=== PATIENT | male | born 1965 | race Caucasian/White ===

== ENCOUNTER 2020-03-06 18:38 | Observation (INO) | payer BC, SELFPAY ==
[2020-03-06 18:39] VITALS: BP 137/114; PULSE 115; RESP 16; TEMP 39.1; O2SAT 97; BMI 21.3
[2020-03-06 18:42] VITALS: BP 137/114; PULSE 117; RESP 16; TEMP 39.1; O2SAT 97
--- NOTE | 2020-03-06 19:12 | ED.VISSUMM ---
- ER Visit Summary Date of Service: 03/06/20 Chief Complaint: [Fever] History of Present Illness: The patient is a 54 M [presents to the emergency department complaint of a fever for the last 4 to 5 days. Patient has had minimal cough that is nonproductive. He denies urinary symptoms. He denies rashes. He does describe a headache. Patient does complain of body aches. Patient denies any sick contacts. He denies any exposures to COVID-19. He does describe a upset stomach. Significant pain in his abdomen. Patient states he has no medical history but really does not go to the doctor.] Physical Examination: [HEENT-PERRLA, EOMI. Cranial nerves II through XII grossly intact. TMs clear. Mucous membranes moist. No adenopathy. Patient diaphoretic on exam. Cardiovascular-regular and tachycardic. No murmurs auscultated. Lungs-clear to auscultation, chest wall stable without crepitus or subcu emphysema Abdomen-normoactive bowel sounds, soft, nontender, no rebound or rigidity, no peritoneal signs. Extremities-intact ?4, normal range of motion, normal pulses, atraumatic] Test Results: [CBC with differential obtained showing a 7.3, hemoglobin 13.7, hematocrit 40, placed 218. Chemistries unremarkable. LFTs were normal. Urinalysis was normal. Lactate was 0.9. Influenza was negative. Covid rapid was negative and Covid PCR was negative. Chest x-ray interpreted by myself as increased markings in bilateral upper lobes. Radiology read it as bilateral upper lobe nodular infiltrates. CT scan of the abdomen pelvis obtained] Emergency Department Course and Treatment: [IV line established on arrival. Blood cultures were ordered and pending. IV line was established and patient was given normal saline. He was given Tylenol for the fever. Was started on Rocephin and Zithromax IV.] Treatment Plan: [Admit] Disposition: [Admit] Impression: [Pneumonia Sepsis] This note was generated with [employer] dictation software. It may contain incorrect words, spelling, and punctuation that were not noted in review of the chart prior to signing ED Disposition - Plan for ED Patient:
[2020-03-06 19:18] LABS: Absolute Lymphocyte Count 2.17 X10^3/uL (0.83-4.51); Absolute Neutrophil Count 4.2 X10^3/uL (2.0-7.7); Basophil# 0.05 X10^3/uL; Basophil% 0.7 % (0-1); Eosinophil# 0.14 X10^3/uL; Eosinophils% 1.9 % (0-5); Hematocrit 39.8 % (40-54); Hemoglobin 13.7 g/dL (13.0-16.5); Lymphocyte # 2.17 X10^3/ul (4.0); Lymphocyte % 29.8 % (19-41); Mean Corp Hgb Conc 34.4 g/dL (32-36); Mean Corpuscular Hgb 29.5 pg (27.0-32.0); Mean Corpuscular Volume 85.8 fL (80-94); Monocyte# 0.68 X10^3/uL; Monocyte% 9.3 % (0-10); NRBC Flagged by Analyzer 0 % (0-5); Neutrophil # 4.23 X10^3/uL (2.7-7.7); Platelet Count 218 K/mm3 (150-450); RBC Distribution Width CV 12.1 % (11.6-14.6); RBC Distribution Width SD 38.2 fl (35.1-43.9); Red Blood Count 4.64 M/mm3 (4.6-6.2); White Blood Count 7.3 K/mm3 (4.4-11.0)
[2020-03-06 19:35] LABS: ALB/GLOB Ratio 0.8 RATIO (0.9-2.4); AST(SGOT) 32 U/L (15-37); Alanine Aminotransfer ALT/SGPT 39 U/L (16-61); Albumin, Serum 3.4 g/dL (3.2-5.0); Alkaline Phosphatase 97 U/L (45-117); Anion Gap 5 (5-15); BUN 12 mg/dL (7-18); BUN/Creat Ratio 12.4 RATIO (10-20); Calcium,Total 8.8 mg/dL (8.5-10.1); Chloride 107 mmol/L (98-107); Creatinine, Serum 0.96 mg/dL (0.70-1.30); EST Glomerular Filtration Rate 86 mL/min (>60); Est Glom Filt Rate - Afr Amer 104 mL/min (>60); Estimated Creatinine Clearance 76.77 ml/min; Globulin 4.2 g/dL (2.2-4.2); Glucose 107 mg/dL (74-106); Potassium 3.9 mmol/L (3.5-5.1); Protein, Total 7.6 g/dL (6.4-8.2); Sodium Level 137 mmol/L (136-145)
[2020-03-06] MEDS: Acetaminophen 500 MG Tablet 1000 MG PO (19:37)
[2020-03-06] MEDS: 0.9% Normal Saline 1,000 ML 150 ML IV (19:38)
[2020-03-06 19:58] LABS: Lactic Acid 0.9 mmol/L (0.4-1.9)
--- NOTE | 2020-03-06 20:13 | RAD_ITS ---
STUDY: X-RAY CHEST REASON FOR EXAM: Male, 54 years old. C/O FEVER, H/A, CHILLS SINCE WEDNESDAY TECHNIQUE: AP portable COMPARISON: None. FINDINGS: There are bilateral upper lobar nodules or nodular infiltrates possibly due to inflammatory changes.. There is no demonstrated pleural abnormality. Normal size heart. Normal mediastinum and gregroia. Normal visualized pulmonary arteries. Normal visualized aortic arch and descending thoracic aorta. Normal visualized thoracic spine. Normal visualized ribs, clavicles, and shoulders. There is no demonstrated abnormality of the visualized soft tissue structures of the upper abdomen. RAD/Chest 1 View (Portable) IMPRESSION: Bilateral upper lobe nodule or nodular infiltrate possibly representing pneumonia. Electronically Signed: Benjie Olea MD at 20:45 EST , Service support ,
[2020-03-06 21:04] LABS: Bacteria 0 SEEN /hpf (None Seen); Red Blood Cells-Urine 0 SEEN /hpf (0-5); Squamous Epithelial Cells - UA 0 SEEN /hpf (0-5)
[2020-03-06 21:10] VITALS: BP 118/78; PULSE 83; RESP 16; TEMP 38.1; O2SAT 98
[2020-03-06 21:10] LABS: Color, Urine Yellow (Yellow); Glucose, Dipstick Normal (Normal); Ketone-Dipstick 15 mg/dl (Negative); Leukocyte Esterase-Dipstick 25 /ul (Negative); Nitrite-Dipstick Negative (Negative); Occult Blood-Urine 10 /ul (Negative); Protein-Dipstick 15 mg/dl (Negative); Specific Gravity, Urine 1.015 (1.002-1.030); Urine Bilirubin Dipstick Negative (Negative); Urine Clarity Clear (Clear); Urine Urobilinogen Normal (Normal)
--- NOTE | 2020-03-06 21:14 | CT_ITS ---
STUDY: CT ABDOMEN AND PELVIS WITHOUT CONTRAST REASON FOR EXAM: Male, 54 years old. FEVER SINCE WEDNESDAY, MCCOLLUM, BODY ACHES, DIAPHORETIC, NEGATIVE COVID RADIATION DOSAGE (If Supplied By Facility): CTDIvol = ( 6.04 ) mGy, DLP = ( 271.80 ) mGycm TECHNIQUE: Transaxial images were obtained from the dome of the diaphragm to the symphysis pubis without oral contrast, and without intravenous contrast. Sagittal and coronal images were reconstructed. Individualized dose optimization techniques were used for this CT. COMPARISON: None. FINDINGS: The visualized lung bases are unremarkable. The visualized portions of the heart are within normal limits. Normal liver. Normal gallbladder and extrahepatic biliary system. Normal spleen. Pancreas is normal in size and homogeneous attenuation. There is effacement of the pancreaticoduodenal fat plane which may represent mild changes of acute pancreatitis or duodenitis however clinical correlation is recommended in this regard. Normal bilateral adrenal glands. Normal right kidney. Normal left kidney. Normal visualized stomach. Nonspecific ileus with diffuse fecal retention in the colon. No evidence for small bowel obstruction. No evidence for acute appendicitis Mild atherosclerotic changes of the aorta without evidence for aneurysm. The Normal inferior vena cava. Normal retroperitoneum. Incompletely distended thick-walled bladder likely of no significance Normal abdominal wall. Normal osseous structures. CT/Abdomen/Pelvis without Cont IMPRESSION: Findings which may be consistent with mild duodenitis or pancreatitis. However clinical correlation is recommended Mild nonspecific ileus with diffuse fecal retention in the colon. No evidence for small bowel obstruction.. Electronically Signed: Benjie Olea MD at 22:00 EST , Service support ,
[2020-03-06 21:17] LABS: Mucous, Urine 3+ /hpf (<or=2+); White Blood Cells 0-5 SEEN /hpf (0-5)
[2020-03-07] VITALS (9 sets, daily range): BP systolic 102–133; BP diastolic 67–83; PULSE 61–101; RESP 16–20; TEMP 36.4–39.5; O2SAT 95–97; BMI 21.2
--- NOTE | 2020-03-07 00:36 | PCM.HP.STD ---
Problem List (1) Pneumonia Status: Acute History of Present Illness Date of Admission: 03/07/20 Chief Complaint: Fever The patient is a 54 year old M who is a former smoker who presents to the emergency department with 4 to 5 days of intermittent subjective fever. Associated with his symptoms is chills and rigors . Although patient can still smell and can still taste he reports anorexia. Also he reports diffuse body aches and headaches. Last time his bowels moved was 3 days ago. He has stomach upset and nausea. Chest x-ray showed bilateral upper lobe nodule or nodular infiltrates possibly representing pneumonia. Abdomen and pelvis CT was concerning for mild duodenitis or pancreatitis; and mild nonspecific ileus with diffuse fecal retention in the colon was noted. Past Medical History Medical History: Medical History (Last Updated 03/07/20 @ 00:[address] Thomas Macias MD) Denies previous past medical history Allergies No Known Allergies Allergy (Verified 03/06/20 18:43) Surgical History: no surgical history Smoking Status: Former smoker - *Family History Maternal History Items: - - Patient's nephew has diabetes. The patient denies any other maternal medical history. Paternal History Items: - - Patient's nephew has diabetes. Patient denies any other paternal medical history. Review of Systems Constitutional: Reports: Chills, Fever - Subjective, Malaise. Denies: Weight Change HEENT: Denies: Head Aches, Sinus Congestion, Sinus Drainage Cardiovascular: Denies: Chest Pain, Palpitations Respiratory: Reports: Cough - Very mild. Denies: Shortness of breath at rest, Sputum production Gastrointestinal: Reports: Abdominal Pain, Constipation, Nausea. Denies: Vomiting Genitourinary: Denies: Dysuria Musculoskeletal: Denies: Joint Pain, Joint Tenderness Skin: Denies: Rash, Wounds Neurological: Denies: Numbness, Tingling, Focal weakness Psychiatric: Denies: Anxiety, Depression, Homicidal Ideations, Suicidal Ideations Hematologic/ Lymphatic: Denies: Easy Bruising, Easy Bleeding VTE Information - Inpt Only VTE Present on Admission: No VTE Mechan Device Prophylaxis: None VTE Pharm Prophylaxis ordered?: Yes Patient Problems: Active and Suspected Problems (Last Updated 03/07/20 @ 00:[address] Thomas Macias MD) Pneumonia (Acute) - Physical Exam Vitals/I&O's: Vital Signs Temp Pulse Resp BP Pulse Ox 100.5 F H 83 16 118/78 98 03/06/20 21:10 03/06/20 21:10 03/06/20 21:10 03/06/20 21:10 03/06/20 21:10 Oxygen Delivery Method Room Air Weight: 61.7 kg Body Mass Index (BMI) 21.3 General: Alert, Oriented x3, Cooperative HEENT: Atraumatic, PERRLA, EOMI, Normocephalic Neck: Supple, No JVD, Negative Carotid Bruits Lungs: Clear to auscultation, Normal air movement Cardiovascular: Regular rate, Normal S1, Normal S2, No murmurs Abdomen: Bowel Sounds Present, Soft, Non Tender Extremities: No edema, Capillary Refill Less than 3 Seconds Skin: No rashes, No breakdown Musculoskeletal: No Tenderness to Palpation of Joints or Extremities Neurological: Cranial nerves II-XII grossly intact Psych/Mental Status: Normal Affect, Appropriate Microbiology Past 72 Hours 03/06/20 19:34 Mucosa - Nose SARS-CoV-2 Antigen (Rapid) - Final 03/06/20 19:34 Mucosa - Nose Influenza Types A,B Direct FA (JAMIE) - Final Laboratory Results 03/06/20 19:00: WBC 7.3, RBC 4.64, Hgb 13.7, Hct 39.8 L, MCV 85.8, MCH 29.5, MCHC 34.4, RDW Std Deviation 38.2, RDW Coeff of Leisa 12.1, Plt Count 218, MPV 10.0, Immature Gran % (Auto) 0.300, Neut % (Auto) 58.0, Lymph % (Auto) 29.8, [place] % (Auto) 9.3, Eos % (Auto) 1.9, Baso % (Auto) 0.7, Absolute Neuts (auto) 4.2, Absolute Lymphs (auto) 2.17, Nucleated RBC % 0 03/06/20 19:00: Sodium 137, Potassium 3.9, Chloride 107, Carbon Dioxide 25.0, Anion Gap 5, BUN 12, Creatinine 0.96, Estim Creat Clear Calc 76.77, Est GFR (MDRD) Af Amer 104, Est GFR (MDRD) Non-Af 86, BUN/Creatinine Ratio 12.4, Glucose 107 H, Calcium 8.8, Total Bilirubin 0.50, AST 32, ALT 39, Alkaline Phosphatase 97, Total Protein 7.6, Albumin 3.4, Globulin 4.2, Albumin/Globulin Ratio 0.8 L 03/06/20 19:00: Lactic Acid 0.9 03/06/20 21:00: Urine Color Yellow, Urine Clarity Clear, Urine pH 6.0, Ur Specific [place] 1.015, Urine Protein 15 H, Urine Glucose (UA) Normal, Urine Ketones 15 H, Urine Occult Blood 10 H, Urine Nitrite Negative, Urine Bilirubin Negative, Urine Urobilinogen Normal, Ur Leukocyte Esterase 25 H, Urine RBC 0 SEEN, Urine WBC 0-5 SEEN, Ur Squamous Epith Cells 0 SEEN, Urine Bacteria 0 SEEN, Urine Mucus 3+ 03/06/20 21:09: COVID-19 (MARK) Not Detected Current Medications Sodium Chloride () 1,000 mls @ 150 mls/hr IV .[id number] [facility] Last Admin: 03/06/20 19:38 Dose: 150 mls/hr Documented by: Azithromycin 500 mg/ Dextrose 255 mls @ 250 mls/hr IV X1 ONE Stop: 03/07/20 01:31 Ceftriaxone Sodium (Rocephin) 1 gm in 50 mls @ 100 mls/hr IV X1 ONE Stop: 03/07/20 00:59 Pantoprazole Sodium 40 mg/ (Sodium Chloride) 110 mls @ 330 mls/hr IV Q24 [facility] Assessment/Plan All Active Problems (Last Updated 03/07/20 @ 00:[address] Thomas Macias MD) Pneumonia (Acute) The patient is a 54 year old M who is a former smoker presents emergency department with 4 to 5 days of intermittent subjective fever; chills and rigors; anorexia; diffuse body aches; headaches; constipation stomach upset and nausea; and radiographic findings of bilateral upper lobe nodules/infiltrates and with abdomen and pelvis CT findings of inflammation and fecal retention. Community-acquired pneumonia Gram-positive, gram-negative, atypical or viral. Received ceftriaxone and azithromycin emergency department to continue ceftriaxone azithromycin. Rapid Covid antigen and PCR antigen was negative. Can not completely rule out covid will order CT scan of the chest. We will get comprehensive respiratory pathogen panel. Duodenitis/pancreatitis Discussed with emergency point doctor to get lipase. I will start patient on Protonix IV. Fecal retention MiraLAX ordered DVT prophylaxis Subcutaneous Lovenox. Inpatient E&M: 33679 Init Hosp L3
[2020-03-07 00:48] LABS: Lipase 122 U/L (73-393)
[2020-03-07] MEDS: Ceftriaxone 1 GM/50 ML BAG IV ×2 (01:18→21:06)
--- NOTE | 2020-03-07 02:17 | CT_ITS ---
STUDY: CT CHEST WITH CONTRAST REASON FOR EXAM: Male, 54 years old. Fever. Bilateral pneumonia. Former smoker quit 10 months ago. COVID 19 negative. RADIATION DOSAGE (If Supplied By Facility): CTDIvol = ( 9.51 ) mGy, DLP = ( 238.46 ) mGycm TECHNIQUE: Transaxial imaging was performed following intravenous administration of IV 100mL Isovue-300. Multiplanar coronal and sagittal images were reformatted. Individualized dose optimization techniques were used for this CT. COMPARISON: CT of the abdomen and pelvis, 03/06/2020. FINDINGS: There is a rounded area of consolidation versus mass with internal calcifications in the posterior right upper lobe measuring 3.6 x 2.1 x 2.4 cm there is a pleural-based focus laterally in the left upper lobe with stranding extending outward into the left lung (image 32, series 4). This measures 1.3 x 0.7 x 1.1 cm. Inferiorly this extends downward to a rounded soft tissue density measuring 2 x 2 0.1 x 1.6 cm (image 45, series 4). Diffuse stranding extends downward into the upper lobe. There is a irregular linear density along the left oblique fissure measuring 1.2 x 0.3 x 0.3 cm which contains focal calcifications (image 50, series 4. The lower lungs appear clear. There is no demonstrated pleural abnormality. Normal heart and pericardium. There are calcifications of the coronary arteries. Nonspecific prevascular and subcarinal lymphadenopathy. There is also noted 1 cm calcified lymph node in the posterior mediastinum adjacent to the esophagus. Normal hilar regions. Normal enhanced pulmonary arteries. Normal aorta arch and descending thoracic aorta. Normal osseous structures. Geographic fatty infiltration of the liver. This vague hypodensity posterior aspect of segment 7 measuring 2.4 x 1.5 x 2.5 cm. Is uncertain whether this represents focal area of fatty infiltration or mass. Correlation with ultrasound is recommended. The abdomen is otherwise unremarkable.. CT/Chest WITH Contrast IMPRESSION: 1. Patchy densities in both lung apices appears somewhat masslike. Follow-up recommended following treatment to ensure resolution. 2. Geographic fatty infiltration of the liver. Question mass versus focal area of fatty infiltration in segment 7. No mass is seen on the noncontrast CT of the abdomen and pelvis performed with same day although there is a vague area of hypodensity in the region of the liver. Correlation with ultrasound is recommended. Electronically Signed: Esteban Rey DO at 8:53 EST Tel [phone], Service support ,
[2020-03-07] MEDS: Polyethylene Glycol 3350 17 GM PACKET PO (03:22)
[2020-03-07 04:04] LABS: Procalcitonin 0.17 ng/mL (0.00-0.09)
[2020-03-07] MEDS: Enoxaparin 40 MG/0.4 ML Syringe SC (10:14)
[2020-03-07] MEDS: 0.9% Saline Lock 10 ML Syringe IV (10:16)
--- NOTE | 2020-03-07 12:50 | CASEMGMT ---
RN BLAZE SLEEP LAB TECHNICIAN BLAZE spoke w/patient for initial transition planning/care coordination assessment. ELIEZER THAKUR introduced self and role at [facility]. Pt voices understanding and consents to assessment at this time. Pt is A/O at this time and answers all questions appropriately. Care providers, pharmacy, and demographics verified/updated at this time. PCP:No PCP. Provided w/list of local PCP's. Pt declines need for assistance w/setting up PCP. He states he will do it. [facility]erred [facility]acy: [facility] Insurance: [employer] Prescription Benefit: Pt is not sure if he has prescription coverage Living Will/HPOA: Does not have AD. Interested in more information and would like to talk w/SW. ITZEL Booker, made aware. LNOK: Adult son, 17-yr-old daughter Living Arrangements: Lives in a trailer w/4 steps to enter w/17-yr-old daughter. Independent. Transportation: Pt states drives self. Sister, Annemarie, will take him home @ d/c. DME: Denies using any DME and denies needs. HHC/SNF: No history of either. No needs identified. Pt wishes to return home at discharge. CM to follow for home oxygen needs and any further discharge planning/needs. Advised pt to ask for CM if any discharge questions/concerns/needs arise. Voices understanding. PLAN: Home Robert DO RN, CM
[2020-03-07] MEDS: Acetaminophen 325 MG Tablet 650 MG PO (13:13)
--- NOTE | 2020-03-07 15:17 | PCM.PN.HOSP ---
Patient Problems: Active and Suspected Problems (Last Updated 03/07/20 @ 00:[address] Thomas Macias MD) Pneumonia (Acute) Reason for Visit: pneumonia Subjective: Still with fever. Feeling better. Vitals/I&O's: Vital Signs Temp Pulse Resp BP Pulse Ox 37.6 C H 86 18 113/72 95 03/07/20 14:44 03/07/20 14:44 03/07/20 14:44 03/07/20 14:44 03/07/20 14:44 Oxygen Delivery Method Room Air Weight: 61.4 kg Body Mass Index (BMI) 21.2 Intake and Output for Last 24 Hours 03/05/20 03/06/20 03/07/20 23:59 23:59 23:59 Intake Total 2014 Balance 2014 General: Alert, No apparent distress HEENT: Atraumatic, Normocephalic Oral: Moist Mucosa, No Gingival or Mucosal Lesions/ Ulcerations Neck: No Nodes, Thyroid Normal Size and Texture Lungs: Clear to auscultation, Normal air movement, No rhonchi, No wheeze, No rales Cardiovascular: Regular rate, Regular Rhythm, Normal S1, Normal S2 Abdomen: Bowel Sounds Present, Soft, Non Tender, Non-Distended, No Hepato-splenomegaly Extremities: No edema, No Calf Tenderness Microbiology Past 72 Hours 03/07/20 00:00 Mucosa - Nasopharyngeal Respiratory Panel (PCR) - Final 03/06/20 21:00 Urine, Clean Catch Legionella Antigen - Final 03/06/20 21:00 Urine, Clean Catch Streptococcus pneumoniae Antigen (M - Final 03/06/20 19:34 Mucosa - Nose SARS-CoV-2 Antigen (Rapid) - Final 03/06/20 19:34 Mucosa - Nose Influenza Types A,B Direct FA (JAMIE) - Final Laboratory Results 03/06/20 19:00: WBC 7.3, RBC 4.64, Hgb 13.7, Hct 39.8 L, MCV 85.8, MCH 29.5, MCHC 34.4, RDW Std Deviation 38.2, RDW Coeff of Leisa 12.1, Plt Count 218, MPV 10.0, Immature Gran % (Auto) 0.300, Neut % (Auto) 58.0, Lymph % (Auto) 29.8, [place] % (Auto) 9.3, Eos % (Auto) 1.9, Baso % (Auto) 0.7, Absolute Neuts (auto) 4.2, Absolute Lymphs (auto) 2.17, Nucleated RBC % 0 03/06/20 19:00: Sodium 137, Potassium 3.9, Chloride 107, Carbon Dioxide 25.0, Anion Gap 5, BUN 12, Creatinine 0.96, Estim Creat Clear Calc 76.77, Est GFR (MDRD) Af Amer 104, Est GFR (MDRD) Non-Af 86, BUN/Creatinine Ratio 12.4, Glucose 107 H, Calcium 8.8, Total Bilirubin 0.50, AST 32, ALT 39, Alkaline Phosphatase 97, Total Protein 7.6, Albumin 3.4, Globulin 4.2, Albumin/Globulin Ratio 0.8 L 03/06/20 19:00: Lactic Acid 0.9 03/06/20 19:00: Lipase 122 03/06/20 19:00: Procalcitonin 0.17 H 03/06/20 21:00: Urine Color Yellow, Urine Clarity Clear, Urine pH 6.0, Ur Specific [place] 1.015, Urine Protein 15 H, Urine Glucose (UA) Normal, Urine Ketones 15 H, Urine Occult Blood 10 H, Urine Nitrite Negative, Urine Bilirubin Negative, Urine Urobilinogen Normal, Ur Leukocyte Esterase 25 H, Urine RBC 0 SEEN, Urine WBC 0-5 SEEN, Ur Squamous Epith Cells 0 SEEN, Urine Bacteria 0 SEEN, Urine Mucus 3+ 03/06/20 21:09: COVID-19 (MARK) Not Detected Current Medications Acetaminophen (Acetaminophen 325 Mg Tablet) 650 mg PO Q6H PRN PRN PRN Reason: Temperature of >= 100.4 F or pain 1-10 Last Admin: 03/07/20 13:13 Dose: 650 mg Documented by: Enoxaparin Sodium (Enoxaparin 40 Mg/0.4 Ml Syringe) 40 mg SC DAILY [facility] Last Admin: 03/07/20 10:14 Dose: 40 mg Documented by: Pantoprazole Sodium 40 mg/ (Sodium Chloride) 110 mls @ 330 mls/hr IV Q24 [facility] Last Infusion: 03/07/20 05:04 Dose: Infused Documented by: Azithromycin 500 mg/ Dextrose 255 mls @ 250 mls/hr IV Q24@2200 [facility] Ceftriaxone Sodium (Rocephin) 1 gm in 50 mls @ 100 mls/hr IV Q24@2200 [facility] Sodium Chloride 1,000 ml/ N/A 1,000 mls @ 61.7 mls/hr IV .[id number] [facility] Stop: 03/08/20 02:18 Last Admin: 03/07/20 03:08 Dose: 1 ml/kg/hr, 61.7 mls/hr Documented by: Polyethylene Glycol (Polyethylene Glycol 3350 17 Gm Packet) 17 gm PO DAILY [place] Last Admin: 03/07/20 03:22 Dose: 17 gm Documented by: Sodium Chloride (0.9% Saline Lock 10 Ml Syringe) 10 - 40 ml IV UD PRN PRN Reason: SALINE FLUSH Last Admin: 03/07/20 10:16 Dose: 10 ml Documented by: STROKE Vital Signs/Narrative: Vital Signs Temp Pulse Resp BP Pulse Ox 03/07/20 14:44 37.6 C H 86 18 113/72 95 03/07/20 14:29 37.2 C 03/07/20 13:22 101 H 03/07/20 13:15 39.5 C H 99 18 133/83 H 97 Medical Necessity - Tobacco Use Smoking Status: Former smoker Assessment/Plan All Active Problems (Last Updated 03/07/20 @ 00:[address] Thomas Macias MD) Pneumonia (Acute) 1. pneumonia, presumed pneumococcal continue with azitho and ctx COVID 19 negative. X-ray report mentions masslike in appearance. Would advise outpatient follow-up in about 4 to 6 weeks to for resolution for repeat scan. Given the patient's symptoms this is more consistent with pneumonia Resp panel, antigen for strep and legionella negative 2. Abnormal liver: Mention of fatty infiltration of the liver questionable mass noted. Radiology report recommending ultrasound. Will check ultrasound of liver and proceed accordingly. 3. Sepsis POA 2/2 above 4. VTE prophylaxis: LMWH Inpatient E&M: [id number] Subs Hosp L2
--- NOTE | 2020-03-07 15:26 | US_ITS ---
STUDY: ABDOMINAL ULTRASOUND - RIGHT UPPER QUADRANT REASON FOR VISIT: Male, 54 years old liver abnormality. TECHNIQUE: Ultrasound evaluation of the right upper quadrant was performed with real-time and static posada-scale imaging. TECHNICAL QUALITY: Adequate. COMPARISON: CT the abdomen and pelvis, 03/06/2020. FINDINGS: Liver: The liver measures 17.0 cm. There is normal echogenicity of the liver. The bile ducts are within normal limits. There is hepatic color flow. The direction of portal flow is hepatopetal. There is no demonstrated mass lesion. Gallbladder: Normal distended gallbladder. The gallbladder wall measures 2 mm. There is a negative sonographic Rodriguez''s sign. There is no pericholecystic fluid. There are no gallstones. Common Bile Duct (C.B.D.): The common bile duct measures 3 mm. Pancreas: Normal size of the head, body and tail of the pancreas. There is normal echogenicity of the pancreas. There is no demonstrated pancreatic mass or cyst. There are multiple hypodense nodules adjacent to the pancreas thought to be lymph nodes. These measure 1.4 x 1.4 x 0.6 cm and 2.6 x 1.7 x 1.2 cm. Right Kidney: Normal size of the right kidney. The right kidney measures 11.1 cm. Normal renal cortex. The right cortex measures 1.2 cm. There is no demonstrated renal mass or cyst. There is no right hydronephrosis. US/Abdomen Limited IMPRESSION: 1. Normal appearing liver. 2. Peripancreatic lymphadenopathy. 3. Otherwise normal right upper quadrant abdominal ultrasound. Electronically Signed: Esteban Rey DO at 23:22 EST Tel [phone], Service support ,
[2020-03-08 03:37] VITALS: BP 146/86; PULSE 91; RESP 18; TEMP 38.7; O2SAT 99
[2020-03-08] MEDS: Acetaminophen 325 MG Tablet 650 MG PO (03:39)
[2020-03-08 05:30] VITALS: TEMP 37.2
[2020-03-08 05:46] LABS: Absolute Lymphocyte Count 2.59 X10^3/uL (0.83-4.51); Absolute Neutrophil Count 6.8 X10^3/uL (2.0-7.7); Basophil# 0.05 X10^3/uL; Basophil% 0.5 % (0-1); Eosinophils% 0.9 % (0-5); Hematocrit 37.2 % (40-54); Hemoglobin 12.8 g/dL (13.0-16.5); Lymphocyte # 2.59 X10^3/ul (4.0); Lymphocyte % 24.2 % (19-41); Mean Corp Hgb Conc 34.4 g/dL (32-36); Mean Corpuscular Hgb 29.9 pg (27.0-32.0); Mean Corpuscular Volume 86.9 fL (80-94); Mean Platelet Vol. 9.9 fl (6.2-12.0); Monocyte% 10.3 % (0-10); NRBC Flagged by Analyzer 0 % (0-5); Neutrophil # 6.83 X10^3/uL (2.7-7.7); Neutrophil % 63.7 % (47-70); Platelet Count 208 K/mm3 (150-450); RBC Distribution Width CV 12.2 % (11.6-14.6); Red Blood Count 4.28 M/mm3 (4.6-6.2); White Blood Count 10.7 K/mm3 (4.4-11.0)
[2020-03-08 06:04] LABS: ALB/GLOB Ratio 0.7 RATIO (0.9-2.4); AST(SGOT) 23 U/L (15-37); Alanine Aminotransfer ALT/SGPT 31 U/L (16-61); Albumin, Serum 2.9 g/dL (3.2-5.0); Alkaline Phosphatase 95 U/L (45-117); Anion Gap 5 (5-15); BUN 10 mg/dL (7-18); Calcium,Total 8.6 mg/dL (8.5-10.1); Chloride 101 mmol/L (98-107); Creatinine, Serum 0.91 mg/dL (0.70-1.30); EST Glomerular Filtration Rate 92 mL/min (>60); Est Glom Filt Rate - Afr Amer 112 mL/min (>60); Estimated Creatinine Clearance 80.59 ml/min; Glucose 97 mg/dL (74-106); Potassium 4.2 mmol/L (3.5-5.1); Protein, Total 6.9 g/dL (6.4-8.2); Sodium Level 135 mmol/L (136-145)
[2020-03-08 09:07] VITALS: BP 104/66; PULSE 68; RESP 18; TEMP 36.8; O2SAT 97
[2020-03-08] MEDS: Polyethylene Glycol 3350 17 GM PACKET PO (09:13)
[2020-03-08] MEDS: Enoxaparin 40 MG/0.4 ML Syringe SC (09:14)
[2020-03-08 14:32] VITALS: BP 116/71; PULSE 70; RESP 18; TEMP 36.6; O2SAT 99
--- NOTE | 2020-03-08 14:51 | DCINST_ITS ---
- Discharge Diagnoses Current Active Problems: Current Active and Chronic Problems (Last Updated 03/07/20 @ 00:[address] Thomas Macias MD) Pneumonia (Acute) You will use the following diet at home:: No restrictions Your food should be the consistency of: Regular Return to work on:: 03/18/20 Call your doctor if you observe: Fever of 101 or Higher, Shortness of breath Allergies/Adverse Reactions: Allergies No Known Allergies Allergy (Verified 03/06/20 18:43) Medications to take at Discharge Guaifenesin [Mucinex] 600 mg PO BID #10 tab.er.12h 03/08/20 levoFLOXacin tablet [Levaquin tablet] 750 mg PO DAILY #5 tab 03/08/20 The following prescriptions were given: levoFLOXacin tablet [Levaquin tablet] 750 mg PO DAILY #5 tab Transmission Status: Pending to [facility] Guaifenesin [Mucinex] 600 mg PO BID #10 tab.er.12h Transmission Status: Pending to [facility] Primary Care Physician: Care Physician,No Primary [Primary Care Provider] - Please follow up with your Primary Care Physician in: 1-2 weeks Test Results: Test results from this visit will be discussed in further detail at your follow- up appointment, if applicable. Proposed Discharge Date: 03/08/20
--- NOTE | 2020-03-08 14:52 | PCM.WORK.EX ---
Work/School Excuse Work/School Excuse for:: Patient Please excuse this person from:: Work From: 03/06/20 through: 03/18/20 - patient does not have COVID-19
--- NOTE | 2020-03-08 14:53 | PCM.DC.SUM ---
Discharge Date and Diagnosis - Problem List Patient Problems: Active and Suspected Problems (Last Updated 03/07/20 @ 00:[address] Thomas Macias MD) Pneumonia (Acute) Date of Admission: 03/07/20 Date of Discharge: 03/08/20 - Primary Discharge Diagnosis Acute Problems: Active Problems (Last Updated 03/07/20 @ 00:[address] Thomas Macias MD) Pneumonia (Acute) Hospital Course and Treatment Imaging Results: Clinical Impression(s) from Imaging Studies Chest X-Ray 03/06/20 20:13 IMPRESSION: Bilateral upper lobe nodule or nodular infiltrate possibly representing pneumonia. Electronically Signed: Bnejie Olea MD at 20:45 EST , Service support , Abdomen/Pelvis CT 03/06/20 21:14 IMPRESSION: Findings which may be consistent with mild duodenitis or pancreatitis. However clinical correlation is recommended Mild nonspecific ileus with diffuse fecal retention in the colon. No evidence for small bowel obstruction.. Electronically Signed: Benjie Olea MD at 22:00 EST , Service support , Chest CT 03/07/20 02:17 IMPRESSION: 1. Patchy densities in both lung apices appears somewhat masslike. Follow-up recommended following treatment to ensure resolution. 2. Geographic fatty infiltration of the liver. Question mass versus focal area of fatty infiltration in segment 7. No mass is seen on the noncontrast CT of the abdomen and pelvis performed with same day although there is a vague area of hypodensity in the region of the liver. Correlation with ultrasound is recommended. Electronically Signed: Esteban Rey DO at 8:53 EST Tel [phone], Service support , Abdomen Ultrasound 03/07/20 15:26 IMPRESSION: 1. Normal appearing liver. 2. Peripancreatic lymphadenopathy. 3. Otherwise normal right upper quadrant abdominal ultrasound. Electronically Signed: Esteban Rey DO at 23:22 EST Tel [phone], Service support , Operations: None Procedures: None Summary of Care Provided: The patient is a 54 year old M presents with fever.[] 1. pneumonia, presumed pneumococcal continue with azitho and ctx COVID 19 negative. X-ray report mentions masslike in appearance. Would advise outpatient follow-up in about 4 to 6 weeks to for resolution for repeat scan. Given the patient's symptoms this is more consistent with pneumonia Resp panel, antigen for strep and legionella negative DC with 5 more days of levofloxacin 2. Abnormal liver: Mention of fatty infiltration of the liver questionable mass noted. Radiology report recommending ultrasound. US negative for liver mass and pancreatic mass. Did note pancreatic lymphadenopathy. Follow up as outpt. Informed pt that this is non-specific and may very well be benign, but will nee follow up. 3. Sepsis POA 2/ pneumonia DC home. I filled out short term disability forms for patient. Pt to return to work 03/18/2020. Patient Problems: Active and Suspected Problems (Last Updated 03/07/20 @ 00:[address] Thomas Macias MD) Pneumonia (Acute) - Physical Exam Vitals/I&O's: Vital Signs Temp Pulse Resp BP Pulse Ox 36.6 C 70 18 116/71 99 03/08/20 14:32 03/08/20 14:32 03/08/20 14:32 03/08/20 14:32 03/08/20 14:32 Oxygen Delivery Method Room Air Weight: 61.4 kg Body Mass Index (BMI) 21.2 Intake and Output for Last 24 Hours 03/06/20 03/07/20 03/08/20 23:59 23:59 23:59 Intake Total 4022.02 / 4022.02 1060.11 / 1060.11 Balance 4022.02 / 4022.02 1060.11 / 1060.11 General: Alert, No apparent distress HEENT: Atraumatic, Normocephalic Oral: Moist Mucosa, No Gingival or Mucosal Lesions/ Ulcerations Neck: No Nodes, Thyroid Normal Size and Texture Lungs: Clear to auscultation, Normal air movement, No rhonchi, No wheeze, No rales Cardiovascular: Regular rate, Regular Rhythm, Normal S1, Normal S2 Abdomen: Bowel Sounds Present, Soft, Non Tender, Non-Distended, No Hepato-splenomegaly Psych/Mental Status: Normal Affect, Appropriate Microbiology Past 72 Hours 03/06/20 19:00 Blood Culture (Wb) - Anticubital Right Bacteria Detection (PCR) - Final 03/06/20 19:00 Blood Culture (Wb) - Anticubital Right Blood Culture - Preliminary Presumptive Micrococcus spp. 03/07/20 00:00 Mucosa - Nasopharyngeal Respiratory Panel (PCR) - Final 03/06/20 21:00 Urine, Clean Catch Legionella Antigen - Final 03/06/20 21:00 Urine, Clean Catch Streptococcus pneumoniae Antigen (M - Final 03/06/20 19:34 Mucosa - Nose SARS-CoV-2 Antigen (Rapid) - Final 03/06/20 19:34 Mucosa - Nose Influenza Types A,B Direct FA (JAMIE) - Final Laboratory Results 03/08/20 05:30: WBC 10.7, RBC 4.28 L, Hgb 12.8 L, Hct 37.2 L, MCV 86.9, MCH 29.9, MCHC 34.4, RDW Std Deviation 39.0, RDW Coeff of Leisa 12.2, Plt Count 208, MPV 9.9, Immature Gran % (Auto) 0.400, Neut % (Auto) 63.7, Lymph % (Auto) 24.2, [place] % (Auto) 10.3 H, Eos % (Auto) 0.9, Baso % (Auto) 0.5, Absolute Neuts (auto) 6.8, Absolute Lymphs (auto) 2.59, Nucleated RBC % 0 03/08/20 05:30: Sodium 135 L, Potassium 4.2, Chloride 101, Carbon Dioxide 29.0, Anion Gap 5, BUN 10, Creatinine 0.91, Estim Creat Clear Calc 80.59, Est GFR (MDRD) Af Amer 112, Est GFR (MDRD) Non-Af 92, BUN/Creatinine Ratio 11.0, Glucose 97, Calcium 8.6, Total Bilirubin 0.60, AST 23, ALT 31, Alkaline Phosphatase 95, Total Protein 6.9, Albumin 2.9 L, Globulin 4.0, Albumin/Globulin Ratio 0.7 L Current Medications Acetaminophen (Acetaminophen 325 Mg Tablet) 650 mg PO Q6H PRN PRN PRN Reason: Temperature of >= 100.4 F or pain 1-10 Last Admin: 03/08/20 03:39 Dose: 650 mg Documented by: Enoxaparin Sodium (Enoxaparin 40 Mg/0.4 Ml Syringe) 40 mg SC DAILY [facility] Last Admin: 03/08/20 09:14 Dose: 40 mg Documented by: Pantoprazole Sodium 40 mg/ (Sodium Chloride) 110 mls @ 330 mls/hr IV Q24 [facility] Last Infusion: 03/08/20 09:34 Dose: Infused Documented by: Azithromycin 500 mg/ Dextrose 255 mls @ 250 mls/hr IV Q24@2200 [facility] Last Infusion: 03/07/20 23:30 Dose: Infused Documented by: Ceftriaxone Sodium (Rocephin) 1 gm in 50 mls @ 100 mls/hr IV Q24@2200 [facility] Last Infusion: 03/07/20 21:36 Dose: Infused Documented by: Polyethylene Glycol (Polyethylene Glycol 3350 17 Gm Packet) 17 gm PO DAILY [facility] Last Admin: 03/08/20 09:13 Dose: 17 gm Documented by: Sodium Chloride (0.9% Saline Lock 10 Ml Syringe) 10 - 40 ml IV UD PRN PRN Reason: SALINE FLUSH Last Admin: 03/07/20 10:16 Dose: 10 ml Documented by: Discharge Diet: No Restrictions Return to work on:: 03/18/20 Call your doctor if you observe: Fever of 101 or Higher, Shortness of breath Home Medications: Medications to take at Discharge Guaifenesin [Mucinex] 600 mg PO BID #10 tab.er.12h 03/08/20 levoFLOXacin tablet [Levaquin tablet] 750 mg PO DAILY #5 tab 03/08/20 Following Prescriptions Were Given to Patient: levoFLOXacin tablet [Levaquin tablet] 750 mg PO DAILY #5 tab Transmission Status: Pending to [facility] Guaifenesin [Mucinex] 600 mg PO BID #10 tab.er.12h Transmission Status: Pending to [facility] Primary Care Physician: Care Physician,No Primary [Primary Care Provider] - Please follow up with your Primary Care Physician in: 1-2 weeks Disposition: Home Minutes spent on discharge:: 35 Patient Condition:: Good Medical Necessity - Tobacco Use Smoking Status: Former smoker Meaningful Use Info Meaningful Use Diagnoses (Choose all that apply): None applicable Inpatient E&M: [id number] Disch Hosp
--- NOTE | 2020-03-08 15:18 | CASEMGMT ---
SW spoke with patient about Healthcare Power of Mine Analyst and Healthcare Living Will. He said he is interested in them, but he would like to talk with his children first. SW gave him the documents and also wrote down phone number to call at [facility] if he would like to complete them as an outpatient. He thanked ITZEL for the information. Kalli CARVER
== END 2020-03-08 17:50 | disposition home or self-care (01) | DRG 871 ==
LOC: ED 20:19 → MS2 03-07 07:13 → PCU 03-08 07:59 → MS2 09-11 07:37
PROVIDERS: Admitting Provider Hospitalist; Emergency Provider Emergency Medicine
DX: A41.9 Sepsis, unspecified organism (principal); K85.90 Acute pancreatitis without necrosis or infection, unspecified; J18.9 Pneumonia, unspecified organism; K59.00 Constipation, unspecified; K29.80 Duodenitis without bleeding; K76.0 Fatty (change of) liver, not elsewhere classified; Z23 Encounter for immunization; Z87.891 Personal history of nicotine dependence
CPT/HCPCS: 36415; 71045; 71260; 74176; 76705; 80053; 81001; 83605; 83690; 84145; 85025; 87040; 87149; 87426; 87449; 87633; 87635; 87804; 94667; 94668; 96365; 96366; 96367; 96372; 99218; 99285; 99406; J7030; J7050; Q9967; 90686; A4216; G0378; U0002

== ENCOUNTER → 2020-07-02 14:47 | Outpatient (CLI) | payer OTHER, SELFPAY ==
[2020-03-07 02:44] VITALS: BMI 21.2
--- NOTE | 2020-07-02 15:00 | PET_ITS ---
EXAMINATION: FDG PET/CT INDICATIONS: A 54-year-old male with reported history of pulmonary nodularity. COMPARISON EXAMINATION: CT of the chest report dated 05/16/20 INDEX LESION SIZE SUV INTERPRETATION Right upper lung-right upper lobe 35.4-mm (frame 192) 2.8 May necessitate histopathologic investigation Right lobe hepatic parenchyma (n=1) 31.6-mm (frame 134) 4.4 ratio > 2.0 Fulfills quantitative criteria for viable neoplasm, correlation with magnetic resonance imaging may be of benefit Mediastinum, bilateral thoracic perihilum 25.2-mm (largest) (frame 171) 4.0 (max) Fulfills quantitative criteria for viable neoplasm Left upper lung-left upper lobe 21.6-mm (frame 183) 2.0 Quantitative criteria for viable neoplasm are not fulfilled TECHNIQUE: Following the intravenous administration of 17.87 mCi of F-18 deoxyglucose via the right antecubital fossa, multiplanar image acquisitions of the neck, chest, abdomen and pelvis to level of mid thigh, obtained at one hour post radiopharmaceutical administration contemporaneously interpreted with the current CT of the neck, chest, abdomen and pelvis to level of mid thigh, dated 07/02/[address] of the chest report dated 05/16/20 reveal: SERUM GLUCOSE LEVEL: 91 mg/dl. HEIGHT: 67 inches. WEIGHT: 135 lbs. FINDINGS: 1. An increase in glucose metabolism is defined in the right upper posterior lung-right upper lobe rendering a calculated maximal standard uptake value of 2.8. The maximal axial diameter of the corresponding density on review of CT of the chest dated 07/02/20 is 35.4-mm (transverse). 2. An increase in FDG uptake is manifest in the left upper lateral lung-left upper lobe rendering a calculated maximal standard uptake value of 2.0. The maximal axial diameter of the corresponding nodule on review of CT of the chest dated 07/02/20 is 21.6-mm (AP). 3. Multifocal increased FDG uptake extends from the carinal to subcarinal mediastinum and bilateral thoracic perihilum rendering a calculated maximal standard uptake value of 4.0. The maximal axial diameter of the largest individual metabolic, morphologic abnormality on review of CT of the chest dated 07/02/20 is 25.2-mm (transverse). 4. A single focus of facilitated FDG uptake is noted in the right lobe of the hepatic (2.4) parenchyma in the distribution of segment VII demonstrating a calculated maximal standard uptake value of 4.4, with a lesion to liver background ratio greater than 2.0. The maximal axial diameter of the corresponding metabolic abnormality on review of CT of the abdomen dated 07/02/20 is 31.6-mm (AP). 5. Normal physiologic distribution of the radiopharmaceutical is apparent in the splenic parenchyma, both renal units, bladder and visualized intestinal tract. The visualized portion of the cerebral cortical-subcortical structures demonstrate symmetric and preserved glucose metabolism. Diffuse radiopharmaceutical concentration is noted in all four quadrants of the abdomen and pelvis. Pertinent CT findings are as follows: CHEST: There are no additional parenchymal densities-nodules defined in the right and left hemithorax with discernible quantitatively significant increased FDG uptake. Coronary arterial calcification is observed. Bilateral subcentimeter axillary soft tissue densities with fatty hilus are non-glucose avid. ABDOMEN AND PELVIS: There is atherosclerotic calcification defined in the abdominal aorta without evidence of dilatation-aneurysm formation. Bilateral inguinal soft tissue densities with fatty hilus are non-glucose avid. Colonic diverticulosis is noted without evidence of diverticulitis. Calcifications are manifest within the prostate gland without evidence of quantitatively significant increased FDG uptake. SKELETAL: There are no well-defined sclerotic-lytic changes manifest on review of the appendicular-axial skeletal structures. PET/PET/CT Tumor Base -Thigh Init IMPRESSION: 1. The increase in glucose metabolism defined in the right upper lung-right upper lobe corresponding to a partially calcified mass density may necessitate histopathologic investigation secondary to quantitative degree of uptake. (Edwards et al, Annals of Internal Medicine, 138:724, 2003). 2. 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 (Tavonbechanning et al, Archives of Surgery, 133:510 1997). Correlation with magnetic resonance imaging utilizing [id number]-[id number] may be of benefit for further evaluation. (Kiara et al, J Nucl Med 51: 692, 2010). 3. The mediastinal and bilateral thoracic perihilar increased tracer concentration corresponding to non-calcified soft tissue fulfills quantitative criteria for malignant transformation. 4. Mild increased tracer uptake observed in the left upper lung-left upper lobe does not fulfill quantitative criteria for neoplastic infiltration. Electronic Signature Aldo Black, D.O. Accurate Quantification of SUVs for this report are calculated using the exclusive [employer]? Technology.??Exclusive [place]. Patent [employer]? Technology ([place].S. Patent No. [id number]). Electronically Signed: Aldo Suh DO at 10:24 EDT Tel , Service support ,
== END ==
DX: R91.1 Solitary pulmonary nodule (principal)
CPT/HCPCS: 78815; A9552